=== PATIENT | male | born 1990 | race Two or more races ===

== ENCOUNTER 2023-07-14 10:46 | Emergency (ER) | payer OTHER ==
[~2023-07-14] VITALS: Ht 177.8 cm; Wt 90.9 kg
[2023-07-14 10:53] VITALS: TEMP 98.4
[2023-07-14] MEDS ORDERED: BUPR-344 PO (10:54)
[2023-07-14] MEDS ORDERED: PENI500T2 PO (11:27)
[2023-07-14] MEDS ORDERED: IBUP-1554 PO (11:27)
[2023-07-14] MEDS ORDERED: CHLO473M6 PO (11:27)
[2023-07-14 11:50] VITALS: BP 127/83; PULSE 78; RESP 18
== END 2023-07-14 12:35 | disposition home or self-care (01) ==
LOC: EMS 10:50
DX: K05.10 Chronic gingivitis, plaque induced (principal); K08.89 Other specified disorders of teeth and supporting structures
CPT/HCPCS: 99283; Z7502